=== PATIENT | male | born 1970 | race Caucasian/White ===

== ENCOUNTER 2023-06-03 22:54 | Emergency (ER) | payer MEDICAID ==
[~2023-06-03] VITALS: Ht 170.2 cm; Wt 89.0 kg
[2023-06-03 23:27] VITALS: BP 147/81; O2SAT 98
[2023-06-04] MEDS: TETANUS, DIPHTHERIA, PERTUSSIS VAC/PF 0.5ML (>10YR OLD) IM ONE (02:12)
[2023-06-04] MEDS: IBUPROFEN 600MG TABLET PO ONE (02:12)
[2023-06-04] MEDS: LIDOCAINE HCL/PF 1% 10 MG/ML 5ML VIAL INFIL ONE (02:59)
[2023-06-04] MEDS: BACITRACIN ZINC OINT UDPKT TOP ONE (02:59)
[2023-06-04] MEDS ORDERED: IBUP-2029 PO (03:08)
[2023-06-04 03:28] VITALS: PULSE 88; RESP 18; TEMP 98.5
== END 2023-06-04 03:32 | disposition home or self-care (01) ==
LOC: ER 22:54
DX: S61.211A Laceration without foreign body of left index finger without damage to nail, initial encounter (principal); W45.8XXA Other foreign body or object entering through skin, initial encounter; Y93.H2 Activity, gardening and landscaping; Y92.89 Other specified places as the place of occurrence of the external cause; Y99.8 Other external cause status
CPT/HCPCS: 12002; 99283; 73130; 90715; 90471; J3490; Z7610

== ENCOUNTER 2023-06-14 16:48 | Emergency (ER) | payer MEDICAID ==
[~2023-06-14] VITALS: Ht 172.7 cm; Wt 90.9 kg
[~2023-06-14 16:48] MED LIST: IBUP-2029 PO
[2023-06-14 16:57] VITALS: BP 134/80; PULSE 65; RESP 16; TEMP 97.9; O2SAT 97
== END 2023-06-14 19:04 | disposition home or self-care (01) ==
LOC: ER 16:48
DX: S61.412D Laceration without foreign body of left hand, subsequent encounter (principal); X58.XXXD Exposure to other specified factors, subsequent encounter
CPT/HCPCS: 99281